=== PATIENT | male | born 1960 | race Caucasian/White ===

== ENCOUNTER → 2018-11-03 08:44 | Outpatient (CLI) | payer OTHER, SELFPAY ==
[2018-11-03 09:50] LABS: PSA,Total - Annual Screen 1.09 ng/mL (0.00-4.00)
--- OUTSIDE RECORDS SUMMARY | 2018-12-27 10:55 | XMS RPT_ITS ---
:1960 Author Organization OHIP Care Team Providers Name Role Phone MS. OLGA HERRERA CNP Attending Unavailable MACIE BURGOS MD Primary Care Unavailable Brandon Johnson Attending Unavailable Brandon Johnson Referring Unavailable MACIE BURGOS Primary Care Unavailable PROBLEMS PROBLEMS DATE TYPE CONDITION / ATTENDING STATUS SOURCE CODE 05/26/2018 Admitting Cutaneous SHARON SY, MS. Active [facility] Diagnosis abscess of [facility] right lower Repository limb / L02.415(ICD-10) PROCEDURES PROCEDURES No Procedure Records FoundRESULTS RESULTS PSA,TOTAL - ANNUAL Collected: 11/03/2018 Status: F Source: [facility] SCREEN 8:50 AM [facility] [place] CODE TESTS RESULT OUT OF RANGE REFERENCE UNITS LAB L501.9910 0.00-4.00 ng/mL Normal PSA,TOT 1.09 SCREEN Result Comment: This test was performed using the TPSA assay method for the [employer] chemistry system. Values obtained with different assay methods cannot be used interchangably. When changing PSA assays in the course of monitoring a patient, additional sequential testing should be carried out to confirm baseline values. Performed By: #### [id number] #### [facility] [id number] [place], [id number] Observed: 05/26/2018 Status: F Source: [facility] 8:25 AM [facility] REPOSITORY . MICRO - Microbiology PROCEDURE: Culture Wound Aerobic with Gram Stain [*1] SOURCE: Abscess BODY SITE: Leg R COLLECTED DATE/TIME: 05/26/2018 08:25 EDT RECEIVED DATE/TIME: 05/26/2018 14:43 EDT START DATE/TIME: 05/26/2018 14:43 EDT FREE TEXT SOURCE: FINAL REPORTS Final Report [] Verified Date/Time/Personnel: 05/28/2018 08:19 EDT Light Methicillin-Resistant Staphylococcus aureus PRELIMINARY REPORTS Preliminary Report [] Verified Date/Time/Personnel: 05/27/2018 10:01 EDT Light Staphylococcus aureus SANTOS to follow STAINS GS [] Verified Date/Time/Personnel: 05/26/2018 15:16 EDT Rare Gram Positive Cocci SUSCEPTIBILITY RESULTS Methicillin-Resistant Staphylococcus aureus Antibiotic SANTOS Dilutn SANTOS Interp Ceftriaxone <=8 Resistant Clindamycin <=0.5 Susceptible Erythromycin <=0.5 Susceptible Oxacillin >2 Resistant Penicillin >8 Resistant Rifampin <=1 Susceptible Tetracycline <=4 Susceptible Trimethoprim/ <=0.5/9.5 Susceptible Sulfa Vancomycin 1 Susceptible Performing Locations *1: This test was performed at: [address], [address] [place] [address] Performed By: #### D #### [place] [address] ALLERGIES ALLERGIES No Allergies Records FoundENCOUNTERS ENCOUNTERS ADMIT/DISCHARGE ACCOUNT NUMBER ADMITTING ENCOUNTER LOCATION SOURCE CLASS 11/03/2018 [id number] Ambulatory [facility] ding:LAB Repository 05/26/2018/05/30/20 [id number] Ambulatory [address] ding:DROP [facility] Repository PAYERS PAYERS ENCOUNTER GUARANTOR PAYER SUBSCRIBER SOURCE 11/03/2018 Waldemar Dixon Waldemar [place] [id number] Insurance:MEDICAL Truong[place]: [facility] [id number] Number: Repository [id number]: [phone] [phone] Date:[id number] [address] [place] [id number]: 11/03/2018 Secondary NOT GIVENUNK [place] Insurance:SELF PAY [facility] Number: Effective Repository Date:2018-11-03 05/26/[address] [facility] Insurance:MEDICAL ZOLLINGERDOB: [facility] [id number] MUTUAL MEDICAREPolicy [id number] Repository [place] Number: [address] [place], [place] [id number] [place] [address]~WILFRIDO Date:2018-05-26 [id number]: [phone] [email or web address]: [phone] Name:HARDIK BLOOM (HP)Tel: [phone]) (HP)Tel: [phone], [place] [phone] (WP) [phone] (WP) [phone]:
== END ==
PROVIDERS: Family Provider Family Medicine; PCP Family Medicine; Referring Provider Urology; Visit Provider Urology
DX: Z12.5 Encounter for screening for malignant neoplasm of prostate (principal)
CPT/HCPCS: 36415; 84153; G0103

== ENCOUNTER → 2019-11-05 07:35 | Outpatient (CLI) | payer OTHER, SELFPAY ==
[2019-11-05 08:39] LABS: PSA,Total - Annual Screen 1.18 ng/mL (0.00-4.00)
== END ==
LOC: LAB.FUTURE 07:37 → LAB 08:11
PROVIDERS: Family Provider Family Medicine; PCP Family Medicine; Referring Provider Urology; Visit Provider Urology
DX: Z12.5 Encounter for screening for malignant neoplasm of prostate (principal)
CPT/HCPCS: 36415; 84153; G0103

== ENCOUNTER → 2021-01-19 08:48 | Outpatient (CLI) | payer OTHER, SELFPAY ==
[2021-01-19 10:46] LABS: PSA,Total - Annual Screen 2.29 ng/mL (0.00-4.00)
== END ==
PROVIDERS: PCP Family Medicine; Referring Provider Urology; Visit Provider Urology
DX: Z12.5 Encounter for screening for malignant neoplasm of prostate (principal)
CPT/HCPCS: 36415; 84153; G0103

== ENCOUNTER 2022-02-27 10:48 | Outpatient (CLI) | payer OTHER, SELFPAY ==
[2022-02-27 11:55] LABS: Anion Gap 4 (5-15); BUN 15 mg/dL (7-18); BUN/Creat Ratio 15.4 RATIO (10-20); Calcium,Total 9.4 mg/dL (8.5-10.1); Chloride 105 mmol/L (98-107); Creatinine, Serum 0.97 mg/dL (0.70-1.30); EST Glomerular Filtration Rate 83 mL/min (>60); Est Glom Filt Rate - Afr Amer 100 mL/min (>60); Glucose 118 mg/dL (74-106); PSA,Total - Annual Screen 1.77 ng/mL (0.00-4.00); Potassium 4.6 mmol/L (3.5-5.1); Sodium Level 137 mmol/L (136-145)
== END 2022-02-27 23:59 | disposition home or self-care (01) ==
LOC: LAB 10:50
PROVIDERS: PCP Family Medicine; Visit Provider Urology
DX: Z12.5 Encounter for screening for malignant neoplasm of prostate (principal)
CPT/HCPCS: 36415; 80048; 84153; G0103

== ENCOUNTER → 2023-03-14 | Outpatient (CLI) | payer OTHER, SELFPAY ==
[2023-03-14 16:42] LABS: PSA,Total - Annual Screen 1.98 ng/mL (0.00-4.00)
== END | disposition home or self-care (01) ==
LOC: LAB 15:28
PROVIDERS: PCP Family Medicine; Referring Provider Registered Nurse; Visit Provider Registered Nurse
DX: Z12.5 Encounter for screening for malignant neoplasm of prostate (principal)
CPT/HCPCS: 36415; 84153; G0103

== ENCOUNTER → 2023-08-07 | Outpatient (CLI) | payer OTHER, SELFPAY ==
--- NOTE | 2023-08-07 12:50 | CDU_ITS ---
Reason For Study: Amaurosis Fugax Rt. Velocities/BP Lt. Velocities/BP Prox CCA 71/15 cm/sec. Prox CCA 93/16 cm/sec. Mid CCA 72/14 cm/sec. Mid CCA 94/19 cm/sec. Dist CCA 63/11 cm/sec. Dist CCA 64/13 cm/sec. Prox ICA 47/12 cm/sec. Prox ICA 44/12 cm/sec. Mid ICA 64/19 cm/sec. Mid ICA 82/27 cm/sec. Dist ICA 78/21 cm/sec. Dist ICA 77/27 cm/sec. Rt. ICA/CCA = 1.1. Lt. ICA/CCA = 0.9. Prox ECA 76/6 cm/sec. Prox ECA 106/7 cm/sec. Rt. Vert. 60/15 cm/sec. Lt. Vert. 48/18 cm/sec. Right Extracranial There is intimal thickening but no significant atherosclerotic plaque noted in the right common carotid artery. There is heterogeneous, smooth atherosclerotic plaque noted in the right internal carotid artery. There is intimal thickening but no significant atherosclerotic plaque noted in the right external carotid artery. Antegrade flow is noted in the right vertebral artery. Heterogeneous, vascular structure noted Rt Thyroid measuring 1.09cm x 1.70cm. Left Extracranial There is intimal thickening but no significant atherosclerotic plaque noted in the left common carotid artery. There is heterogeneous, smooth atherosclerotic plaque noted in the left internal carotid artery. There is intimal thickening but no significant atherosclerotic plaque noted in the left external carotid artery. Antegrade flow is noted in the left vertebral artery. Procedure Carotid Duplex 14268. This is a Carotid Duplex examination using B-mode, color flow and specral Doppler. Exam performed in department. VL/Carotid Duplex Ultrasound Interpretation Summary Intimal thickening of the right carotid bulb and internal carotid artery with l ess than 50% stenosis of the internal carotid Less than 50% stenosis right external carotid Incidental notation of 1.09 x 1.7 cm right thyroid solid cystic nodule. Minimal smooth plaque at the proximal left internal carotid artery with less th an 50% stenosis. Less than 50% stenosis left external carotid artery Patent and antegrade vertebral arteries bilaterally Ordering Physician: Tanner Ramos Referring Physician: Jr Tang Performed By: Adelina Ronquillo, FRANSISCO, RVT
--- NOTE | 2023-08-07 12:50 | ECHOD_ITS ---
Version 2 Reason For Study: FUGAX Procedure This was a 2D Doppler, Color Flow transthoracic echocardiogram. Exam performed in department. Left Ventricle Normal LV size. Mild concentric left ventricular hypertrophy. Left ventricular systolic function is normal. The estimated ejection fraction is 65 %. No regional wall motion abnormalities noted. Right Ventricle Normal RV size. Normal systolic function. Atria Normal left atrium. Normal right atrium. Bubble contrast study negative for right to left interatrial shunt. Mitral Valve Normal mitral valve. Tricuspid Valve Normal tricuspid valve. Aortic Valve Normal aortic valve. Trisinus/trileaflet aortic valve. Pulmonic Valve Normal pulmonic valve. Great Vessels Normal aortic root. The pulmonary artery is normal size. Normal inferior vena cava. Pericardium/Pleural No pericardial effusion. Medication 22 gauge I.V. with prn adaptor inserted into right arm. Performed a rapid injection of agitated mix of 9 cc saline and 1cc air to assess for atrial septal defect. MMode/2D Measurements & Calculations LVIDd: 4.9 cm IVSd: 1.2 cm Ao root diam: 3.4 cm LVIDs: 3.8 cm LVPWd: 1.2 cm RVDd: 3.1 cm FS: 22.0 % LAV(MOD-bp): 59.5 ml LVAd ap4: 33.5 cm2 SV(MOD-sp4): 75.6 ml LAV(MOD-bp) Indexed: 26.3 ml/m2 LVLd ap4: 7.6 cm LAV(MOD-sp2): 73.1 ml EDV(MOD-sp4): 118.9 ml LAV(MOD-sp4): 47.2 ml EDV(sp4-el): 125.2 ml LVAs ap4: 17.9 cm2 LVLs ap4: 6.4 cm ESV(MOD-sp4): 43.3 ml ESV(sp4-el): 42.8 ml EF(MOD-sp4): 63.6 % EF(sp4-el): 65.8 % SV(sp4-el): 82.4 ml LA A4 area: 17.5 cm2 LA dimension(2D): 3.7 cm RA A4 area: 14.0 cm2 TAPSE: 2.1 cm Time Measurements MV dec time: 0.26 sec Doppler Measurements & Calculations MV E max jose de jesus: 82.6 cm/sec Lat Peak E' Jose De Jesus: 11.2 cm/sec Med Peak E' Jose De Jesus: 7.2 cm/sec MV A max jose de jesus: 81.2 cm/sec E/E' lat: 7.4 E/E' med: 11.5 MV E/A: 1.0 MV V2 max: 87.8 cm/sec MV dec slope: 317.5 cm/sec2 Ao V2 max: 133.6 cm/sec MV max P.1 mmHg Ao max P.1 mmHg MV V2 mean: 56.1 cm/sec Ao V2 mean: 95.1 cm/sec MV mean P.4 mmHg Ao mean P.1 mmHg MV V2 VTI: 29.3 cm Ao V2 VTI: 31.2 cm AV (velocity ratio): 0.67 LV V1 max: 100.8 cm/sec PA V2 max: 98.4 cm/sec LV V1 max P.1 mmHg PA V2 mean: 69.2 cm/sec LV V1 mean P.4 mmHg LV V1 mean: 73.0 cm/sec LV V1 VTI: 21.1 cm ECHO/Echo Complete Interpretation Summary Normal LV size. Left ventricular systolic function is normal. The estimated ejection fraction is 65 %. Bubble contrast study negative for right to left interatrial shunt. Mild concentric left ventricular hypertrophy. Ordering Physician: Tanner Ramos Referring Physician: Tanner Ramos Performed By: Jania Carbajal RCS
== END | disposition home or self-care (01) ==
PROVIDERS: PCP Family Medicine; Referring Provider Ophthalmology; Visit Provider Ophthalmology
DX: G45.3 Amaurosis fugax (principal)
CPT/HCPCS: 93306; 93880

== ENCOUNTER → 2024-03-17 | Outpatient (CLI) | payer MEDICARE, OTHER, SELFPAY ==
[2024-03-17 09:36] LABS: PSA,Total - Annual Screen 1.95 ng/mL (0.00-4.00)
== END | disposition home or self-care (01) ==
LOC: LAB 08:34
PROVIDERS: PCP Family Medicine; Referring Provider Urology; Visit Provider Urology
DX: Z12.5 Encounter for screening for malignant neoplasm of prostate (principal)
CPT/HCPCS: 36415; 84153; G0103

== ENCOUNTER → 2025-03-16 | Outpatient (CLI) | payer MEDICARE, OTHER, SELFPAY ==
[2025-03-16 10:46] LABS: PSA,Total - Annual Screen 2.01 ng/mL (0.02-4.00)
== END | disposition home or self-care (01) ==
LOC: LAB 08:27
PROVIDERS: PCP Family Medicine; Referring Provider Nurse Practitioner; Visit Provider Nurse Practitioner
DX: Z12.5 Encounter for screening for malignant neoplasm of prostate (principal)
CPT/HCPCS: 36415; 84153; G0103